=== PATIENT | female | born 1950 | race Caucasian/White ===

== ENCOUNTER 2021-07-10 15:16 | Emergency (ER) | payer MEDICARE, OTHER ==
[~2021-07-10] VITALS: Ht 170.2 cm; Wt 88.5 kg
[2021-07-10] MEDS ORDERED: BENZONATATE200 MG PO (16:43)
[2021-07-10] MEDS ORDERED: PREDNISONE20 MG PO (16:43)
[2021-07-10] MEDS ORDERED: ZITHROMAX250 MG PO (16:43)
== END 2021-07-10 16:48 | disposition home or self-care (01) ==
LOC: FSED 15:40
DX: U07.1 COVID-19 (principal); J20.9 Acute bronchitis, unspecified; R50.9 Fever, unspecified; R05.9 Cough, unspecified; R09.81 Nasal congestion; I10 Essential (primary) hypertension
CPT/HCPCS: 71045; 83518; 87400; 99283; U0002

== ENCOUNTER 2022-11-11 05:45 | Emergency (ER) | payer MEDICARE, OTHER ==
[~2022-11-11] VITALS: Ht 170.2 cm; Wt 86.2 kg
[~2022-11-11 05:45] MED LIST: BENZONATATE200 MG PO; PREDNISONE20 MG PO; ZITHROMAX250 MG PO
[2022-11-11 05:59] VITALS: O2SAT 98
[2022-11-11] MEDS ORDERED: IBUPROFEN200 MG PO (06:16)
[2022-11-11] MEDS ORDERED: TYLENOL325 MG PO (06:16)
== END 2022-11-11 06:38 | disposition home or self-care (01) ==
LOC: FSED 05:55
DX: S63.591A Other specified sprain of right wrist, initial encounter (principal); X50.1XXA Overexertion from prolonged static or awkward postures, initial encounter; Y92.89 Other specified places as the place of occurrence of the external cause; I10 Essential (primary) hypertension; Z98.84 Bariatric surgery status
CPT/HCPCS: 99283

== ENCOUNTER 2024-03-28 09:43 | Emergency (ER) | payer MEDICARE, OTHER ==
[~2024-03-28] VITALS: Ht 170.2 cm; Wt 89.4 kg
[~2024-03-28 09:43] MED LIST changes: +IBUPROFEN200 MG PO; +TYLENOL325 MG PO
[2024-03-28] MEDS ORDERED: MAGOX 400400 MG PO (10:17)
[2024-03-28] MEDS ORDERED: LOSARTAN POTASS25 MG PO (10:17)
[2024-03-28] MEDS ORDERED: METOPROLOL SUCC25 MG PO (10:17)
[2024-03-28] MEDS ORDERED: AMOXICILLIN500 MG PO (10:45)
[2024-03-28] MEDS: CEFTRIAXONE 1 GM VIAL IM ONE (11:09)
[2024-03-28] MEDS ORDERED: LIDOCAINE HCL 1% LOCAL INJ 20 ML VIAL ONE (11:12)
[2024-03-28 11:14] VITALS: BP 216/96
[2024-03-28] MEDS: CLONIDINE HCL 0.1 MG TAB PO ONE (11:14)
[2024-03-28 11:15] VITALS: PULSE 74; RESP 18; TEMP 99; O2SAT 97
== END 2024-03-28 11:34 | disposition home or self-care (01) ==
LOC: FSED 09:50
DX: R50.9 Fever, unspecified (principal); U07.1 COVID-19; J02.0 Streptococcal pharyngitis; I16.0 Hypertensive urgency; R05.9 Cough, unspecified; R51.9 Headache, unspecified; I10 Essential (primary) hypertension; J44.9 Chronic obstructive pulmonary disease, unspecified; J45.909 Unspecified asthma, uncomplicated; Z98.84 Bariatric surgery status; Z96.653 Presence of artificial knee joint, bilateral
CPT/HCPCS: 0223U; 83518; 87400; 96372; 99283; J0696; J2001